=== PATIENT | female | born 1945 | race Caucasian/White ===

== ENCOUNTER 2024-02-21 07:44 | Day surgery (SDC) | payer MEDICARE, SELFPAY ==
[2024-02-21] VITALS (22 sets, daily range): BP systolic 103–175; BP diastolic 59–131; PULSE 54–78; RESP 13–18; TEMP 35.8–36.9; O2SAT 92–98; BMI 31.6
[2024-02-21] MEDS: LACTATED RINGERS 1000 ML 1,000 ML 100 ML IV ×2 (07:30→12:18)
--- OUTSIDE RECORDS SUMMARY | 2024-02-21 07:47 | XMS_ITS | Clinical Summary ---
Author Name Unknown Organization [facility] Address [place], [place] [address] Care Team Providers Care Application Development Director Name Role Phone [facility] Primary Care Provider Unavail able Allergies Active Allergy Reactions Criticality Noted Date Comments Amlodipine Edema 12/04/2020 Hymenoptera Allergenic Extract Edema High 08/08 Medications No known medications Active Problems Problem Noted Date Diagnosed Date Post herpetic neuralgia 05/21/2016 Family history of malignant neoplasm of gastrointestinal tract 09/05/2013 Overview: Colonoscopy 08/2013 normal repeat in 5 years 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 Ramos ) 02/08/2024 Travel from Last 3 Months Immunizations Name Administration Dates Next Due Tdap 07/03/2007 Tuberculin (PPD) 07/25/2012 Family History Medical History Relation Name Comments Hypertension Brother 1 Cancer-colon Brother 2 Hypertension Father Cancer Mother lymphoma Psychiatric illness Mother Other Son 1 Autism Other Son 2 Aspergers Hypertension Son 3 Anesthesia Malignant Hyperthermia No Family History Blood Disease No Family History Relation Name Status Comments Brother 1 Brother 2 Child Alive total of 4 onofre serrano Father Mother Son 1 Son 2 Son 3 Social History Tobacco Use Types Packs/Day Years Used Date Smoking Tobacco: Former Cigarettes Q uit: 11/14/1981 Smokeless Tobacco: Never Tobacco Cessation:Counseling Given: Yes Alcohol Use Standard Drinks/Week Comments Yes 4.2 (1 standard drin k = 0.6 oz pure alcohol) 2 times a week, 2-3 drinks in a sitting PHQ-2 Answer Date Recorded PHQ-2 TOTAL SCORE 0 08/14/2020 Social Connections Answer Date Recorded Frequency of Communication with Friends and Fami ly 0 02/08/2024 Financial Resource Strain Answer Date R ecorded Difficulty of Paying Living Expenses 3 02/08/2024 Difficulty of Paying Living Expenses Not on file 02/08/2024 Food Insecurity Answer Date Recorded Worried About Running Out of Food in the Last Ye ar 1 02/08/2024 Transportation Needs Answer Date Record ed Lack of Transportation (Medical) 1 02/08/2024 Housing Stability Answer Date Recorded Unable to Pay for Housing in the Last Year 1 02/08/2024 Sex and Gender Information Value Date Recorded Sex Assigned at Not on file Gender Identity Not on file Sexual Orientation Not on file Obstetrics History Para Term AB IAB SAB Ectopic Multiple Livin g Live Births 4 4 4 Date Outcome GA Total Labor Labor/2nd/3rd Weight Sex Delivery Anes PTL Myriam A1 A5 Name Cl in Para Para Para Para Last Filed Vital Signs Vital Sign Reading Time Taken Comments Blood Pressure 139/83 02/08/2024 2:09 PM CDT Pulse 68 02/08/2024 2:09 PM CDT Temperature 36.2 ??C (97.1 ??F) 02/08/2024 2:09 PM CD T Respiratory Rate 16 02/08/2024 2:09 PM CDT Oxygen Saturation 95% 02/08/2024 2:09 PM CDT Inhaled Oxygen Concentration - - Weight 86.2 kg (190 lb) 02/08/2024 2:09 PM CDT Height 166.7 cm (5' 5.63) 02/08/2024 2:09 PM CD T Body Mass Index 31.01 02/08/2024 2:09 PM CDT Plan of Treatment Health Maintenance Due Date Last Done Comments Zoster (shingles) series for age 50+ (1 of 2) 1997 DEXA/DXA scan for age 65+ 2012 Pneumococcal series for age 65+ (1 of 1 - PCV) 2012 Tetanus booster 07/03/2017 07/03/2007 Depression screening for age 12+ 08/14/2021 08/14/20, 02/23/2016 Medicare Wellness for age 65+ 08/15/2021 08/14/2020, 08/08/2013 COVID-19 vaccine series (2022-24 season) 2023 Influenza for age 65+ 07/15/2024 BMI (ht and wt on same day) for age 18+ 02/07/2025 02/08/2024, 12/30/2020, 12/04/2020, Additional history exists Tdap Completed 07/03/2007 Hepatitis C screening for ag e 18-79 Completed 08/14/2020 Procedures Procedure Name Priority Date/Time Associated Diagnosis Comments EKG 12 LEAD Routine 02/10/2024 10:17 AM CDT Preop examination MS READING EKG - NO CHARGE, COMP ONLY Routine 02/10/2024 10:16 AM CDT Preop examination HEMOGLOBIN Routine 02/08/2024 2:56 PM CDT Preop examination ANTI HCV Routine 08/14/2020 12:22 PM CDT Encounter for hepatitis C screening test for low risk patient from Last 3 Months or Most Recently Relevant to Health Maintenance Results * EKG 12 LEAD (02/10/2024 10:17 AM CDT) Kristine FORTE EKG ORD * MS READING EKG - NO CHARGE, COMP ONLY (02/10/2024 10:16 AM CDT) Kristine FORTE PB - PROVIDER MEKA MAYES * HEMOGLOBIN (02/08/2024 2:56 PM CDT) HEMOGLOBIN 14.2 12.0 - 16.0 g/dL 02/08/2024 3:11 PM CDT [facility] MCV 93 80 - 100 fL 02/08/2024 3:11 PM CDT [facility] Blood BLOOD SPECIMEN / Unknown Venipuncture / Unknown 02/08/2024 2:56 PM CDT 02/08/2024 2:56 PM CDT Kristine FORTE HEMATOLOGY [facility] [address] [place] [address], * ANTI HCV (08/14/2020 12:22 PM CDT) HEPATITIS C ANTIBODY Non-React adrian Non-React adrian 08/14/2020 10:09 PM CDT [facility] Comment:Antibodies to HCV no t detected; does not exclude the possibility of exposure to HCV. Blood BLOOD SPECIMEN / Unknown Venipuncture / Unknown 08/14/2020 12:22 PM CDT 08/14/2020 12:22 PM CDT Janiya FORTE SEND OUTS [facility] [address] [place] [address], [place] from Last 3 Months or Most Recently Relevant to Health Maintenance Care Teams Application Development Director Relationship Specialty Start Date End Date Damaris Herman PCP - General 08/10/23
[2024-02-21] MEDS: OXYCODONE (CR) 10 MG TAB.ER.12H PO (08:12)
--- NOTE | 2024-02-21 10:10 | SUR.PREOP ---
TIME?OUT:?1002 PT/RN/MDA?VERIFICATION?OF?SURGICAL?SITE,?PROCEDURE,?AND?CONSENT OBTAINED?PRIOR?TO?INVASIVE?PROCEDURE.
[2024-02-21] MEDS: fentaNYL 100 MCG/2 ML inj IVP (10:11)
[2024-02-21] MEDS: MIDAZOLAM HCL 1 MG/ML inj IVP (10:11)
[2024-02-21] MEDS: TRANEXAMIC ACID 100 MG/ML INJ 1000 MG IV (10:45)
[2024-02-21] MEDS: CEFAZOLIN 2 GM INJ IVP (10:50)
--- NOTE | 2024-02-21 11:01 | W.PM.NB ---
Nerve Block Nerve Block Time Seen by Provider: 10:05 Date Seen: 02/21/24 Type of block requested by surgeon for post-operative analgesia: adductor canal Side: left Time out performed: Yes Verification of patient name: Yes Verification of date of : Yes Site marking: site marked Name of person performing procedure: Mina Continuous monitoring Was continuous monitoring of O2 sat, B/P, satellite project site monitor, recorded every 15 minutes?: Yes Procedure Checklist: sterile prep, needles and gloves Ultrasound guided. Images saved: Yes Medications given in 5ml increments after negative aspiration: Ropivicaine %: 0.5 mL: 20 Needle gauge: 20 Decadron (mg): 10 Precedex (mcg): 25 Patient tolerated procedure well: Yes Additional comments: Needle noted adjacent to nerve Block Charges Block Charge (with Pro Fee): Femoral Nerve Use of Ultrasound Machine for Block: Yes- US Guidance/pain block
--- NOTE | 2024-02-21 11:02 | P.NB_ITS ---
Nerve Block Nerve Block Time Seen by Provider: 10:05 Date Seen: 02/21/24 Type of block requested by surgeon for post-operative analgesia: geniculars Side: left Time out performed: Yes Verification of patient name: Yes Verification of date of : Yes Site marking: site marked Name of person performing procedure: Mina Continuous monitoring Was continuous monitoring of O2 sat, B/P, cardiac care unit nurse, recorded every 15 minutes?: Yes Procedure Checklist: sterile prep, needles and gloves Medications given in 5ml increments after negative aspiration: Ropivicaine %: 0.5 mL: 9 Needle gauge: 25 Patient tolerated procedure well: Yes Block Charges Block Charge (with Pro Fee): Genicular Nerve Block Use of Ultrasound Machine for Block: No
--- NOTE | 2024-02-21 11:02 | W.ANESCHARGE ---
Anesthesia Charges Start Date/Time Anesthesia Start Date: 02/21/24 Anesthesia Start Time: 10:39 Stop Date/Time Anesthesia Stop Date: 02/21/24 Anesthesia Stop Time: 12:44 Summary Extremes of Age - Over 70 or under 1: MDA
--- NOTE | 2024-02-21 12:06 | XR_ITS ---
Patient: MONET DÍAZ Facility:?[facility] Patient ID:?[id number] Site Patient ID:?[id number]. Site :?[id number] Study:?XRay-Knee Left 2 view post op-02/21/2024 1:09:05 PM Ordering Physician:?Ismael Mcnamara Final Report: Indication: Postop TKA Technique: Two views left knee Findings/Impression: Hardware from a left total knee arthroplasty is in satisfactory position. Bone alignment is normal. No sign of acute fracture. Postop changes are within normal limits. Dictated by Abdullahi Alva MD @ 02/23/2024 9:08:27 AM Signed by:?Abdullahi Alva MD @02/23/2024 9:08:27 AM (Electronic Signature)
--- NOTE | 2024-02-21 12:11 | P.ORPRC_ITS ---
Procedure Note Date of procedure: 02/21/24 Procedure: PREOPERATIVE DIAGNOSIS: Left knee osteoarthritis POSTOPERATIVE DIAGNOSIS: Left knee osteoarthritis NAME OF OPERATION: Left total knee arthroplasty SURGEON: Ismael Mcnamara MD PAID SEARCH MARKETING STRATEGIST: SHAYLA Gordon ANESTHESIA: Spinal ESTIMATED BLOOD LOSS: 0 mL COMPLICATIONS: None SPECIMENS: None DRAINS: None PREOPERATIVE ANTIBIOTICS: Ancef 2 grams IMPLANTS: 1. J&J Attune # 7 posterior stabilized femur 2. #6 fixed-bearing tibia 3. # 7 posterior stabilized, 5 mm fixed-bearing polyethylene 4. 38 patella INDICATIONS: The patient is a 78-year-old with a longstanding history of severe, unrelenting left knee pain secondary to end-stage (grade IV) left knee osteoarthritis. Despite appropriate nonoperative management, including activity modification, anti-inflammatories, [id number] pain medication, bracing, ph ysical therapy, and injections they continue to have pain and disability. Operative intervention was offered. The risks, benefits and expected outcomes were discussed in detail. These included but were not limited to: Infection, bleeding, injury to blood vessel or nerve, venous thromboembolism. All questions were answered to their satisfaction. Use of an school bus driver/teacher assistant was necessary throughout the case for patient positioning and safety, soft tissue retraction, and closure. PROCEDURE: Spinal anesthesia was administered. The patient was placed supine on the operating table. The school bus driver/teacher assistant made sure the patient was positioned appropriately. The lower extremity was prepped and draped in the usual sterile fashion. The limb was exsanguinated with the Tee bandage. The pneumatic tourniquet was inflated to 300 mmHg. A standard anterior incision was made with the knee in flexion. Subcutaneous dissection was sharply taken through fascial layer #1. Full-thickness medial and lateral flaps were elevated. The school bus driver/teacher assistant retracted the soft tissues and protected them throughout the case. A standard subvastus approach was made. The patella was everted. The infrapatellar fat pad was preserved. The menisci and cruciate ligaments were sharply d?brided. Marginal osteophytes were d?brided with the rongeur. The drill was used to penetrate the femoral canal. The canal was aspirated and irrigated with pulse lavage. The intramedullary femoral guide was placed for a 5-degree valgus cut, removing 10 mm off the distal femur. The saw was used to make the cut. Whitesides line and the trans epicondylar axis were marked. The femoral sizing guide was pinned onto the distal femur. Three degrees of external rotation nicely parallels the transepicondylar axis. Pins were placed for posterior referencing. The four-in-one cutting guide was pinned onto the distal femur. The anterior, posterior, and chamfer cuts were made. The school bus driver/teacher assistant protected the collateral ligaments. The box cutting guide was pinned. The box cuts were made. The boxed trial was placed and was an excellent fit. Drill holes for the lugs were made. Attention was then turned to the proximal tibia. The extramedullary tibial guide was placed for a neutral varus/valgus cut with 5 degrees of posterior slope, removing 0 mm based off the medial tibial surface. The school bus driver/teacher assistant protected the collateral ligaments and the neurovascular bundle. The saw was used to make the cut. Trial components were placed. The knee was nicely balanced in both flexion and extension. The trial components were removed. The tray was placed in appropriate rotation, parallel to our tibial cutting pins. It was pinned by the school bus driver/teacher assistant and the drill and the punch were used. The tray was removed. The punch was used again. We placed a bone plug in the femoral canal. Attention was then turned to the patella. [place] patellar thickness was 24.5 mm. The lobster claw resection guide was used with the 9.5 mm maricarmen. The saw was used to make the cut. Drill holes were made by the school bus driver/teacher assistant. The trial was placed and was an excellent fit. Cancellous surfaces were irrigated with pulse lavage and thoroughly dried by the school bus driver/teacher assistant. We cemented the tibial component, then the femoral component. We impacted the 5 mm polyethylene onto the tibial tray. The knee was brought into full extension. We then cemented the patellar component. Excessive cement was removed. The cement was allowed to harden. The knee was taken through a range of motion and was found to be nicely balanced in both flexion and extension. The patella tracks centrally. The school bus driver/teacher assistant did a three minute dilute Betadine solution soak. The school bus driver/teacher assistant irrigated the wound with 3 liters of normal saline via pulse lavage. The school bus driver/teacher assistant reapproximated the extensor mechanism with #1 Vicryl in an interrupted [id number]-hc-ziudw fashion. The school bus driver/teacher assistant then ran the extensor mechanism with a #1 PDO Stratafix. The school bus driver/teacher assistant closed the subcutaneous tissues with a 3-0 Stratafix and the skin with a running 3-0 Stratafix in a subcuticular fashion. Glue was used to seal the skin. The school bus driver/teacher assistant placed a dry dressing, AARON stocking, and Polar Care. Sponge and needle counts were correct x2. The patient tolerated the procedure well. There were no apparent complications. They were carefully transferred to the hospital bed and taken to the post anesthesia care unit in satisfactory condition. PLAN: The patient will be mobilized with physical therapy. Aspirin will be used for DVT prophylaxis. They will be discharged to home once medically appropriate.
--- NOTE | 2024-02-21 12:18 | W.ANESCHARGE ---
Anesthesia Charges Start Date/Time Anesthesia Start Date: 02/21/24 Anesthesia Start Time: 10:39 Stop Date/Time Anesthesia Stop Date: 02/21/24 Anesthesia Stop Time: 12:44 Summary Extremes of Age - Over 70 or under 1: PATROL COMMUNITY SERVICE OFFICER
[2024-02-21] MEDS: OXYCODONE 5 MG TABLET PO ×5 (15:10→23:53)
[2024-02-21] MEDS: CEFAZOLIN 2 GM in 0.9 % SODIUM CHLORIDE Mini-bag 100 ML IVPB (17:10)
--- NOTE | 2024-02-21 17:18 | P.IMCN_ITS ---
Date of Consult Patient: [facility] Patient Consult date: 02/21/24 Requesting Physician: Orthopedics Primary Care Provider: Kristine Khan PA-C Consult Narrative Reason for consult: Medical management Narrative: Joselin Weldon is a 78 year old female past medical history significant for osteoarthritis, hypertension not on any medications, herpes zoster is POD# 0 status post left total knee arthroplasty. There have been no perioperative complications or nursing concerns reported. Estimated total blood loss documented as 0ml. Updated and reviewed the active medical problems, past medical history, past surgical history, social history, allergies and medications in our electronic EMR. Pain is currently adequately managed. Review of Systems Narrative: REVIEW OF SYSTEMS: Complete review of systems performed and negative unless otherwise stated in HPI or below. PFSH PFSH Medical History Arthritis ?M19.90 - Unspecified osteoarthritis, unspecified site (ICD-10) Hypertension ?I10 - Essential (primary) hypertension (ICD-10) Surgical History Status post right knee replacement (01/06/21) ?Z96.651 - Presence of right artificial knee joint (ICD-10) Family History Brother Diabetes Father High blood pressure Mother Bipolar disorder Maternal Grandfather Myocardial infarction Meds Home Medications and Allergies Allergies Allergy/AdvReac Type Severity Reaction Status Date / Time celecoxib Allergy Intermediate Hypertensio Verified 02/21/24 09:03 n licorice Allergy Intermediate facial Verified 02/21/24 09:03 numbness amlodipine Allergy Unknown edema Verified 02/21/24 09:03 bee venom protein (honey bee) Allergy Unknown Verified 02/21/24 09:03 Exam Narrative: Exam Narrative: PHYSICAL EXAM General: Pleasant, conversant, NAD HEENT: Normocephalic, atraumatic, sclera white, EOMI, oral mucosa moist Cardiovascular: RRR, S1S2. No pitting edema Pulmonary: CTA bilaterally without rhonchi, rales, expiratory wheezes. No dyspnea Abdominal: Soft, nondistended, NTTP Neurological: Alert, answering questions appropriately, cranial nerves intact, no focal findings Extremities: No gross joint deformity or swelling. Postoperative dressing in place, dry. Neurovascularly intact Skin: Warm, dry. Const: Vital Signs, click to edit/add: Vital Signs - 24 hr 02/21/24 08:47 02/21/24 10:10 02/21/24 10:15 Temperature 98.1 F Pulse Rate 70 60 60 Respiratory Rate 16 16 16 Blood Pressure 175/86 H 145/77 H 124/79 Pulse Oximetry 94 92 98 Oxygen Delivery Me thod Room Air Nasal Cannula Nasal Cannula Oxygen Flow Rate 3 3 02/21/24 10:23 02/21/24 12:40 02/21/24 12:45 Temperature 97.1 F L Pulse Rate 60 65 64 Respiratory Rate 16 16 14 Blood Pressure 126/67 103/59 L 106/63 Pulse Oximetry 96 93 95 Oxygen Delivery Me thod Nasal Cannula Room Air Oxygen Flow Rate 2 02/21/24 12:50 02/21/24 12:55 02/21/24 13:00 Temperature Pulse Rate 64 62 60 Respiratory Rate 16 16 14 Blood Pressure 110/68 113/75 118/68 Pulse Oximetry 94 93 94 Oxygen Delivery Me thod Oxygen Flow Rate 02/21/24 13:05 02/21/24 13:10 02/21/24 13:15 Temperature 96.8 F L 96.9 F L Pulse Rate 60 59 L 60 Respiratory Rate 16 13 18 Blood Pressure 125/80 119/77 133/75 Pulse Oximetry 93 92 94 Oxygen Delivery Me thod Room Air Oxygen Flow Rate 02/21/24 13:30 02/21/24 13:45 02/21/24 14:00 Temperature 97.1 F L 96.8 F L 96.5 F L Pulse Rate 61 59 L 58 L Respiratory Rate 18 18 18 Blood Pressure 134/81 133/80 135/76 Pulse Oximetry 96 94 94 Oxygen Delivery Me thod Room Air Room Air Room Air Oxygen Flow Rate 02/21/24 14:15 Temperature Pulse Rate 54 L Respiratory Rate 18 Blood Pressure 136/81 Pulse Oximetry 96 Oxygen Delivery Me thod Oxygen Flow Rate Assessment and Plan Assessment and plan (1) Osteoarthritis of left knee: Problem comment: -POD#0 s/p left TKA, Dr. Mcnamara -perioperative management including pain management and anticoagulation per Orthopedic surgery -encourage postoperative pulmonary hygiene -PT OT consults -plan to discharge home with family tomorrow Status: Acute (2) Hypertension: Problem comment: Not on any medications. Monitor postoperatively Status: Chronic Plan [facility] medicine team will sign off. Please contact our service with any questions or concerns. Total Time Spent Total Time Spent: Total time spent caring for the patient today was 45 minutes. This includes time spent for the visit reviewing the chart, time spent during the visit, time spent after the visit and documentation and planning in coordination of care.
--- NOTE | 2024-02-21 18:51 | PC.NURSE ---
Nursing Care Hours: [id number] Pt arrived from PACU alert and oriented with no c/o pain and VSS. As block wore off pain rated 5-7/10, treated with ice and PRN meds. Pt refusing acetaminophen because she doesn't like it. Slight nausea treated with aromatherapy and cool cloth, effective. Bandage remains CDI, bilat pedal pulses present. 1750ml with IS. IV saline locked with adequate PO intake. Pt had one incontinent void in bed and one small void on toilet. Tolerating regular meal. Occasional HTN noted but pt states feeling stressed out about a situation at home.
[2024-02-21] MEDS: SENNOSIDES 1 TAB TABLET 2 TAB PO (21:20)
[2024-02-21] MEDS: ASPIRIN 81 MG TABLET EC PO (21:20)
[2024-02-21] MEDS: ACETAMINOPHEN 500 MG TABLET 1000 MG PO (23:59)
[2024-02-22] MEDS: CEFAZOLIN 2 GM in 0.9 % SODIUM CHLORIDE Mini-bag 100 ML IVPB (01:27)
[2024-02-22] MEDS: OXYCODONE 5 MG TABLET PO ×3 (02:02→08:20)
[2024-02-22 02:42] VITALS: BP 181/87; PULSE 84; RESP 18; TEMP 36; O2SAT 92
[2024-02-22] MEDS: ACETAMINOPHEN 500 MG TABLET 1000 MG PO (05:28)
[2024-02-22] MEDS: MAG HYDROX/ALUMINUM HYD/SIMETH 30 ML ORAL.SUSP PO (05:29)
--- NOTE | 2024-02-22 05:35 | PC.NURSE ---
End of shift report [id number]: Alert and oriented x 4. Pain to left knee, utilizing PRN oxycodone and ice pack to opsite. Refused 2030 tylenol, at 2330 patient reporting pain to left knee 10/10 and felt that oxycodone has not been effective for pain management, discussed medication options and screen writer offered to call distribution technician ortho. Patient requested to use tylenol and if no relief then to call distribution technician. At 0120 patient reported that tylenol along with oxycodone and ice was effective for pain. Patient reported that she will now utilize tylenol for post op pain, patient prefers not to take tylenol for personal reasons. Left knee CMS intact, edema to knee WNL for post surgical. Dressing clean, dry and intact. Transfers and ambulates with SBA.
[2024-02-22 07:00] VITALS: BP 155/79; PULSE 80; RESP 16; TEMP 36.5; O2SAT 94
[2024-02-22 07:02] LABS: Basophils Absolute Auto 0.01 K/uL (0.00-0.30); Basophils Percent Auto 0.1 % (0.0-3.0); Eosinophils Absolute Auto 0.01 K/uL (0.00-0.50); Eosinophils Percent Auto 0.1 % (0.0-7.0); Hematocrit 38.1 % (33.0-51.0); Hemoglobin* 12.8 gm/dL (12.0-16.0); Immature Granulocytes Abs Auto 0.03 K/uL (0.00-0.30); Immature Granulocytes Pct Auto 0.3 %; Lymphocytes Percent Auto 5.4 % (20-44); Mean Corpuscular HGB Conc 34 gm/dL (32-36); Mean Corpuscular Hemoglobin 31 pg (26-34); Mean Corpuscular Volume 94 fL (80-100); Monocytes Percent Auto 8.4 % (0.0-11.0); Neutrophils Percent Auto 85.7 % (42.0-72.0); Platelet Count* 178 K/uL (140-440); RDW Coefficient of Variation % 12.9 % (11.5-15.5); Red Blood Count 4.07 m/uL (4.00-5.20); White Blood Count* 10.07 K/uL (4.50-11.00)
[2024-02-22 07:14] LABS: INR 0.99 (0.91-1.10); Prothrombin Time 13.7 Seconds
[2024-02-22 07:17] LABS: Slide Review Reflex No
[2024-02-22 07:28] LABS: Potassium* 4.4 mmol/L (3.6-5.1); Sodium* 135 mmol/L (135-149)
[2024-02-22 07:32] LABS: Blood Urea Nitrogen* 17 mg/dL (7-30); Creatinine* 0.6 mg/dL (0.5-1.5); Est. Creatinine Clearance* 43.07; Estimated Glomerular Filt Rate 93 ml/min
[2024-02-22] MEDS: ASPIRIN 81 MG TABLET EC PO (08:20)
[2024-02-22] MEDS: SENNOSIDES 1 TAB TABLET 2 TAB PO (08:21)
--- NOTE | 2024-02-22 09:04 | PM.ORPN ---
Subjective Subjective Time Seen by Provider: 07:50 Date Seen: 02/22/24 Principal diagnosis: Status post left knee replacement Interval history: Joselin is comfortable at rest in her hospital bed. She states last evening she had intense pain and had difficulty moving the leg. Now she can raise the leg easily in supine position. Ortho Exam Narrative Exam Narrative: Alert and oriented x3. Patient is in no acute distress. Converses without labored breathing. Hearing is grossly intact. Ambulates with a walker. Examination of the left knee shows the dressing is intact. Mild effusion. No erythema or warmth or sign of infection. CMS intact left lower extremity. Bilateral calves are soft and nontender. She is easily able to straight leg raise. Quad strength 5/5. Const Vital Signs, click to edit/add: Vital Signs - 24 hr 02/21/24 10:10 02/21/24 10:15 02/21/24 10:23 Temperature Pulse Rate 60 60 60 Pulse Rate [Left Pulse Oximeter] Respiratory Rate 16 16 16 Blood Pressure 145/77 H 124/79 126/67 Blood Pressure [Left Arm] Pulse Oximetry 92 98 96 Oxygen Delivery Method Nasal Cannula Nasal Cannula Nasal Cannula Oxygen Flow Rate 3 3 2 02/21/24 12:40 02/21/24 12:45 02/21/24 12:50 Temperature 97.1 F L Pulse Rate 65 64 64 Pulse Rate [Left Pulse Oximeter] Respiratory Rate 16 14 16 Blood Pressure 103/59 L 106/63 110/68 Blood Pressure [Left Arm] Pulse Oximetry 93 95 94 Oxygen Delivery Method Room Air Oxygen Flow Rate 02/21/24 12:55 02/21/24 13:00 02/21/24 13:05 Temperature Pulse Rate 62 60 60 Pulse Rate [Left Pulse Oximeter] Respiratory Rate 16 14 16 Blood Pressure 113/75 118/68 125/80 Blood Pressure [Left Arm] Pulse Oximetry 93 94 93 Oxygen Delivery Method Oxygen Flow Rate 02/21/24 13:10 02/21/24 13:15 02/21/24 13:30 Temperature 96.8 F L 96.9 F L 97.1 F L Pulse Rate 59 L 60 61 Pulse Rate [Left Pulse Oximeter] Respiratory Rate 13 18 18 Blood Pressure 119/77 133/75 134/81 Blood Pressure [Left Arm] Pulse Oximetry 92 94 96 Oxygen Delivery Method Room Air Room Air Oxygen Flow Rate 02/21/24 13:45 02/21/24 14:00 02/21/24 14:15 Temperature 96.8 F L 96.5 F L Pulse Rate 59 L 58 L 54 L Pulse Rate [Left Pulse Oximeter] Respiratory Rate 18 18 18 Blood Pressure 133/80 135/76 136/81 Blood Pressure [Left Arm] Pulse Oximetry 94 94 96 Oxygen Delivery Method Room Air Room Air Oxygen Flow Rate 02/21/24 14:30 02/21/24 15:00 02/21/24 16:00 Temperature 98.4 F Pulse Rate 64 64 Pulse Rate [Left Pulse Oximeter] Respiratory Rate 18 18 Blood Pressure 144/77 H 149/131 H 131/108 H Blood Pressure [Left Arm] Pulse Oximetry 98 95 Oxygen Delivery Method Room Air Room Air Oxygen Flow Rate 02/21/24 17:00 02/21/24 18:00 02/21/24 23:00 Temperature Pulse Rate 78 73 Pulse Rate [Left Pulse Oximeter] Respiratory Rate 18 18 18 Blood Pressure 152/85 H 141/83 H Blood Pressure [Left Arm] Pulse Oximetry 94 94 Oxygen Delivery Method Oxygen Flow Rate 02/22/24 02:42 02/22/24 07:00 02/22/24 07:00 Temperature 96.8 F L 97.7 F Pulse Rate Pulse Rate [Left Pulse Oximeter] 84 80 80 Respiratory Rate 18 16 16 Blood Pressure Blood Pressure [Left Arm] 181/87 H 155/79 H Pulse Oximetry 92 94 Oxygen Delivery Method Room Air Room Air Oxygen Flow Rate Assessment and Plan Assessment and plan (1) Status post left knee replacement: Problem details: 02/21/2024Anders Status: Acute Assessment and Plan: Plan for discharge is today to home if they meet discharge criteria. DVT prophylaxis includes aspirin 81 mg twice daily x1 month, Compression stockings as needed for swelling. Frequent ambulation, every hour throughout the day. Remove dressing in 1 week. Observe wound and phone Orthopedics with any questions or concerns Return to clinic in 1 week for a wound check Return to clinic in 6 weeks with surgeon Minimize narcotic use. Wean off and discontinue soon as possible. Activities as tolerated. No strenuous activity. Outpatient physical therapy as scheduled. Ice and elevate the operative extremity. No restriction on ice. She request that she is able to take ibuprofen. She can take ibuprofen 800 mg once a day. She has that at home. She does not want Tylenol. I canceled that prescription for she has some at home and does not like taking it. We also discussed that a 10s unit may be an option for her. I will have my nurse look into this option for her. She is concerned about insurance coverage on this.
[2024-02-22 11:00] VITALS: BP 151/85; PULSE 96; RESP 18; TEMP 36.6; O2SAT 95
--- NOTE | 2024-02-22 11:50 | PC.NURSE ---
Nursing discharge note: Pt is A&O x4, afebrile and VSS on day of discharge. She is ambulatory SBA with 2ww with no gait concerns. Pt c/o LLE pain rating it consistently at 6-8/10. Pt was hesitant on taking scheduled Tylenol right away post-op but since she?s alternated scheduled Tylenol with PRN oxycodone, her pain has been well controlled. Oxycodone given last @ 0820 AM of discharge. Pt denies any nausea or SOB. PIV in left FA discontinued, catheter intact. Pt has not had a BM yet. Denies issues with urination. Left knee dressing C/D/I, mild swelling to LLE. Ice pack in place. Discharge instructions reviewed with patient at bedside, she often interrupts bond underwriter and disagreed with information given but verbalized understanding. Pt discharged home accompanied by her via W/C @ [id number].?
== END 2024-02-22 11:40 | disposition home or self-care (01) ==
LOC: OR 07:46 → MEDSURG 07:50
PROVIDERS: PCP Student in an Organized Health Care Education/Training Program; Visit Provider Orthopaedic Surgery
PROC: (CPT 27447; principal; 2024-02-21 10:00)
DX: M17.12 Unilateral primary osteoarthritis, left knee (principal); G89.18 Other acute postprocedural pain; I10 Essential (primary) hypertension
CPT/HCPCS: 27447; 01402; 36415; 64447; 64454; 73560; 76942; 82565; 84132; 84295; 84520; 85025; 85610; 97110; 97116; 97161; 97165; 97530; 97535; 99100; A9270; C1776; J0690; J1100; J2250; J2704; J2795; J3010; J7120

== ENCOUNTER 2024-04-05 13:00 | Outpatient (RCR) | payer MEDICARE, SELFPAY ==
--- NOTE | 2024-02-06 17:07 | PT.OPEX ---
PT [place] Outpatient Eval PT [facility] Outpatient Eval Start: 02/06/24 16:45 Freq: Status: Active Protocol: Document 02/06/24 16:49 MARGO (Rec: 02/06/24 17:05 MARGO [id number]) E-signed By Malathi Snyder DPT Physical Therapy Outpatient Evaluation Insurance Information Recert Due Date 05/06/24 Insurance Name Medicare B,[facility] Medical Diagnosis L knee OA L TKA 02/21/24 Treating Diagnosis L knee pain, impaired L knee ROM, impaired L knee/LE mobility/strength, limping/ antalgic gait, limited tolerance for extended standing/walking/stairs Subjective Subjective Patient reports chronic L knee pain leading up to L TKA scheduled for 02/21/24. States she has been dealing with significant L knee pain and was having difficulty walking up until recently. Now her L knee is feeling pretty good, better than her R knee which was replaced in 2020. She is wondering if she needs the surgery. Patient has been avoiding activity due to increased pain with standing/ walking/stairs. Not currently doing any exercises. Patient wanting to have several visits leading up to her surgery - initially because she couldn't walk but not to see how she is doing leading up to her surgery. She has not been using an AD. Denies pain today. Using ibuprofen on occasion. Date of Last Physician Visit 12/13/23 Date of Surgery (If applicable) 02/21/24 Current Work Status Retired Precautions Treatment Precautions/Contraindications hx R TKA 2020, HTN, L knee OA Assessment Assessment/Impression Patient is a 78 year old female with chronic L knee pain, impaired L knee ROM, impaired L knee/LE mobility/ strength, limping/antalgic gait, limited tolerance for extended standing/walking/ stairs. Denies pain today. Reports significant pain the last several weeks, difficulty standing/walking. Patient has L TKA scheduled for 02/21/24 . Patient seen in PT today for pre-op session to provide education/information on upcoming TKA surgery, safety information/HO, equipment instruction including use of FWW, and instruction in TKA exercises. Handouts issued for exercises, patient to perform them leading up to surgery. Reviewed PT/OT plan during hospital stay and patient is scheduled for OP PT post op. Patient would benefit from skilled PT for pain/sx management, improved knee ROM, improved knee/LE mobility/strength, improved gait, balance/proprioception training, and establishment of HEP. Patient has 3 additional PT visits scheduled leading up to surgery as she was having significant pain and felt she would need additional PT visits. Patient will start her pre-op exercises and follow up later this week to assess how they are going, adjust exercises or progress as needed leading up to surgery. Patient is in agreement with plan. Continue with PT POC. Plan of Care Rehabilitation Potential Good Physical Therapy Goals 1. Patient will be educated in TKA pre/post-op safety, mobility, and exercises with HOs provided within one visit with patient returning to PT for 2-3 visits pre-op to progress as needed/able and then returning to PT post op treatment after L TKA surgery on 02/21/24. PT goals will be updated to TKA rehab goals when patient returns post op. Coordination/Communication With Referral Source Treatment Plan/Direct Interventions Gait Training,Manual Therapy, Therapeutic Exercises Frequency/Duration 3-5 pre-op visits as needed 2x/week post op Patient Will Be Discharged From Therapy Completion of LTG(s),Skills Plateau,Independent w/HEP, Independently Progressing Evaluation Billing Untimed Code Treatment Minutes 40 Complexity Moderate Certification Information Initial Certification Date 02/06/24 Ending Certification Date 05/06/24 Provider Signature Shows Agreement With POC & Medical Necessity Physician Signature & Date Requested Please Sign/Date Here Physician Comment/Change : Physician NPI Number #
== END 2024-07-10 16:25 | disposition home or self-care (01) ==
PROVIDERS: PCP Physician Assistant; Visit Provider Orthopaedic Surgery
DX: M17.12 Unilateral primary osteoarthritis, left knee (principal); Z96.652 Presence of left artificial knee joint; M25.562 Pain in left knee; Z74.09 Other reduced mobility; R26.89 Other abnormalities of gait and mobility; R29.898 Other symptoms and signs involving the musculoskeletal system; Z51.89 Encounter for other specified aftercare
CPT/HCPCS: 97110; 97162; 97164